=== PATIENT | female | born 1985 | race Two or more races ===

== ENCOUNTER → 2019-04-15 09:54 | Outpatient (CLI) | payer SELFPAY ==
[2014-09-17 12:25] VITALS: BMI 35.8
[~2019-04-15 09:54] MED LIST: HYDROCODON-ACE1 EA10 PO; HYDROCODON-ACE1 EAC7 PO; IBUPROFEN600 MG PO; MOTRIN600 MG PO; PRENAVITE1 TAB PO
== END | disposition home or self-care (01) ==
LOC: D.LDO 09:54
PROVIDERS: ATTEND Obstetrics & Gynecology
DX: O26.893 Other specified pregnancy related conditions, third trimester (principal); Z3A.31 31 weeks gestation of pregnancy

== ENCOUNTER → 2019-05-13 12:11 | Outpatient (CLI) | payer MEDICAID ==
[2014-09-17 12:25] VITALS: BMI 35.8
== END | disposition home or self-care (01) ==
LOC: D.LDO 12:11
PROVIDERS: ATTEND Obstetrics & Gynecology
DX: O36.8130 Decreased fetal movements, third trimester, not applicable or unspecified (principal); Z3A.35 35 weeks gestation of pregnancy

== ENCOUNTER → 2019-05-17 13:52 | Outpatient (CLI) | payer MEDICAID ==
[2014-09-17 12:25] VITALS: BMI 35.8
== END | disposition home or self-care (01) ==
LOC: D.LDO 13:52
PROVIDERS: ATTEND Obstetrics & Gynecology
DX: O26.899 Other specified pregnancy related conditions, unspecified trimester (principal); Z3A.00 Weeks of gestation of pregnancy not specified

== ENCOUNTER → 2019-05-18 09:07 | Outpatient (CLI) | payer MEDICAID ==
[2014-09-17 12:25] VITALS: BMI 35.8
== END | disposition home or self-care (01) ==
LOC: D.LDO 09:07
PROVIDERS: ATTEND Obstetrics & Gynecology
DX: O35.9XX0 Maternal care for (suspected) fetal abnormality and damage, unspecified, not applicable or unspecified (principal)

== ENCOUNTER → 2019-05-21 19:28 | Outpatient (CLI) | payer MEDICAID ==
[2014-09-17 12:25] VITALS: BMI 35.8
== END | disposition home or self-care (01) ==
LOC: D.LDO 19:28
PROVIDERS: ATTEND Student in an Organized Health Care Education/Training Program
DX: O62.4 Hypertonic, incoordinate, and prolonged uterine contractions (principal); Z3A.36 36 weeks gestation of pregnancy

== ENCOUNTER 2019-05-25 03:03 | Inpatient (IN) | payer MEDICAID ==
[~2019-05-25] VITALS: Ht 152.4 cm; Wt 84.8 kg
[~2019-05-25 03:03] MED LIST changes: -HYDROCODON-ACE1 EA10 PO; -MOTRIN600 MG PO
[2019-05-25 04:17] VITALS: BP 139/85; Ht 152.4 cm; Wt 84.8 kg
[2019-05-25 04:20] LABS: HEMATOCRIT 41.2 % (36.0-48.0); HEMOGLOBIN 13.4 g/dL (12-16); MCHC 32.5 g/dL (31.0-37.0); MCV 86.2 fL (80.0-100.0); MEAN PLATELET VOLUME 11.4 fL (7.4-10.4); RBC 4.78 10x6/uL (4.00-5.40); RDW 13.6 % (11.5-14.5); WBC 6.9 10x3/uL (4.8-10.8)
--- NOTE | 2019-05-25 08:55 | NUR ---
IN [place] OFF BEARER ROLE TODAY FOR [employer] RN STUDENT PROGRAM. PATIENT PREFERRED NO STUDENTS DURING LABOR AND DELIVERY. ASKED PT AND IF OK FOR STUDENT TO WORK WITH NURSERY RN IN TAKING CARE OF INFANT- STUDENT WILL NOT GIVE MEDS BUT WILL COMPLETE CHART REVIEW AND ASSESSMENT. PATIENT AND FOB GAVE VERBAL CONSENT THAT STUDENT CAN WORK WITH NURSERY RN.
[2019-05-25 09:11] LABS: APPEARANCE CLEAR (CLEAR); BACTERIA FEW /hpf (NEGATIVE); BILIRUBIN NEGATIVE (NEGATIVE); COLOR YELLOW (YELLOW); EPITHELIAL CELLS 0-5 /hpf (0-5); GLUCOSE NEGATIVE (NEGATIVE); KETONE NEGATIVE (NEGATIVE); NITRITE NEGATIVE (NEGATIVE); PROTEIN 1+ mg/dL (NEGATIVE); RED CELLS - URINE 0-5 /hpf (0-5); UROBILINOGEN NORMAL (NORMAL); WHITE CELLS - URINE OCC /hpf (NEGATIVE); YEAST <1+ /hpf (NONE SEEN)
[2019-05-25 12:35] VITALS: BP 148/92
--- NOTE | 2019-05-25 12:40 | NUR ---
TO ROOM 1221 VIA W/C FROM L&D. INTO BED. REPORT FROM Sebastian RODAS RN. FUNDUS 1/U. AT BEDSIDE. VS DONE.
--- NOTE | 2019-05-25 12:45 | NUR ---
STATES THAT NEEDS TO VOID. UP TO BATHROOM- UNABLE TO VOID. SMALL LOCHIA NOTED- SMALL CLOT X1. RETURNS TO BED. EXPLAINED ABOUT IN AND OUT CATH- PT AGREES. IN AND OUT CATH DONE USING TERRAZZO TILE SETTER WITH 700CC URINE RETURN. FUNDUS UU. VS REPEATED. REG DIET SERVED.
[2019-05-25 13:06] VITALS: BP 147/89
[2019-05-25 14:00] VITALS: BP 127/72
--- NOTE | 2019-05-25 14:00 | NUR ---
VS DONE. RESTING IN BED. DENIES NEEDS. FUNDUS UU/FIRM. SCANT LOCHIA NOTED ON PAD. FSBS DONE- 119. INFORMED DR KANG OF THIS- STATES DO NOT NEED TO REPEAT BS.
--- NOTE | 2019-05-25 15:07 | NUR ---
ENTERED ROOM WITH PAIN MEDICATION FOR CO CRAMPING AND RATES PAIN A 5 ON SCALE OF 0-10. STATES FEELS LIKE CAN VOID.
--- NOTE | 2019-05-25 15:21 | NUR ---
VOIDED 300CC INTO CONTAINER. INSTRUCTED ON CORDELIA CARE USING BETADINE AND WARM WATER, DERMAPLAST AND TUCKS PADS. PT STATES UNDERSTANDING.
--- NOTE | 2019-05-25 16:10 | NUR ---
RESTING IN BED. STATES THAT PAIN IS BETTER AFTER PAIN MEDICATION.
[2019-05-25 16:12] VITALS: BP 132/80
--- NOTE | 2019-05-25 18:36 | NUR ---
UP AND ABOUT IN ROOM- TENDING TO INFANT. CO CRAMPING AND RATES PAIN A 4 ON SCALE OF 0-10.
[2019-05-25 19:31] VITALS: BP 120/75
--- NOTE | 2019-05-25 19:45 | NUR ---
PT IS AWAKE AND ALERT. SHE IS HAVING PAIN AT THIS TIME. SHE WAS GIVEN NARCO 5 MG PO. HER FUNDUS IS FIRM. BLEEDING IS SMALL AMT. HEART SOUNDS WNL, LUNGS ARE CLEAR, BOWEL SOUNDS HEARD IN ALL 4 QUAD. SHE IS UP AD NOLBERTO IN HER ROOM. SHE DOESN'T SPEAK MUCH THAI AND HER IS WITH HER ALWAYS TO TRANSLATE. PT IS VOIDING WELL WITHOUT PROBLEMS.
--- NOTE | 2019-05-25 21:00 | NUR ---
PT IS RESTING WELL. NO NEW C/O AT THIS TIME. PT IS UP AD NOLBERTO IN ROOM. AT BEDSIDE.
--- NOTE | 2019-05-25 22:05 | NUR ---
PT DOING WELL. SHE IS UP IN THE BATHROOM. MINIMUN BLEEDING NOTED ON PAD. SHE STATES HER PAIN IS A 4 BUT REQUEST NO MEDS. AT BEDSIDE. NO NEED OR WANTS AT THIS TIME.
--- NOTE | 2019-05-26 00:40 | NUR ---
PT IS AWAKE TALKING WITH . SHE HAS NO C/O AT THIS TIME. SHE IS UP AD NOLBERTO IN HER ROOM.
--- NOTE | 2019-05-26 02:15 | NUR ---
PT IS RESTING QUIETLY WITH HER EYES CLOSED. NO C/O AT THIS TIME. IS ALSO SLEEPING AT BEDSIDE. NO NEEDS OR WANT AT THIS TIME.
--- NOTE | 2019-05-26 05:00 | NUR ---
ROUNDS MADE. DAD CURRENTLY ATTEMPTING TO FEED . INFORMED NOT DUE TO EAT UNTIL 529. WILL WAIT UNTIL THEN.
[2019-05-26 05:09] LABS: BASOPHILS 0.2 % (0-2); EOSINOPHILS 2.1 % (0-7); HEMATOCRIT 39.8 % (36.0-48.0); IMMATURE GRANULOCYTES 0.5 % (0-5); LYMPHOCYTES 29.5 % (15-50); MCH 28.4 pg (26.0-34.0); MCHC 32.7 g/dL (31.0-37.0); MCV 86.9 fL (80.0-100.0); MEAN PLATELET VOLUME 10.8 fL (7.4-10.4); MONOCYTES 5.5 % (2-11); NEUTROPHILS 62.2 % (40-80); PLATELET COUNT 204 10x3/uL (130-400); RBC 4.58 10x6/uL (4.00-5.40); RDW 13.9 % (11.5-14.5); WBC 8.5 10x3/uL (4.8-10.8)
--- NOTE | 2019-05-26 05:59 | NUR ---
PT C/O OF PAIN RATING OF 6. MEDICATED WITH NARCO 5 MG PO. IN ROOM HOLDING THE BABY.
[2019-05-26 07:13] LABS: RAPID PLASMA REAGIN Non Reactive (Non Reactive)
[2019-05-26 08:07] VITALS: BP 128/74
--- NOTE | 2019-05-26 08:07 | NUR ---
PT RESTING QUIETLY IN BED WITH BABY AND SPOUSE AT BEDSIDE. RESP EVEN AND UNLABORED. PT REPORTS MINIMAL PAIN 4/10 AT THIS TIME. SALINE LOC TO RIGHT HAND. SITE WITHOUT REDNESS OR EDEMA. FUNDUS FIRM 2 BELOW UMBILICUS. SCANT BLEEDING NOTED. BONDING WELL WITH BABY. DENIES FURTHER NEEDS AT THIS TIME. CL WITHIN REACH. ENCOURAGED TO CALL WITH NEEDS. CONTINUE POC
[2019-05-26] MEDS ORDERED: HYDROCODON-ACE1 EA10 PO (11:21)
[2019-05-26] MEDS ORDERED: MOTRIN600 MG PO (11:22)
--- NOTE | 2019-05-26 13:00 | NUR ---
IV D/C'D. CATHETER INTACT. BANDAGE PLACED AT INSERTION SITE.
--- NOTE | 2019-05-26 14:00 | NUR ---
DISHCARGE TEACHING COMPLETED WITH ASSISTANCE FROM FAMILY MEMBER ACTING SIMULATION SPECIALIST. PATIENT STATES UNDERSTANDING. FOLLOW-UP APPOINTMENT AND PRESCRIPOTIONS GIVEN. PATIENT DOES HAVE QUESTIONS OR CONCERNS.
--- NOTE | 2019-05-26 15:30 | NUR ---
DISCHARGED HOME IN STABLE CONDITION. TO PRIVATE VEHICLE VIA WHEELCHAIR BY HOSPITAL STAFF.
== END 2019-05-26 15:40 | disposition home or self-care (01) | DRG 805 ==
LOC: D.LDO 03:03 → D.LD 03:32 → D.WS 12:35
PROVIDERS: Obstetrics & Gynecology; ADMIT Obstetrics & Gynecology; ATTEND Obstetrics & Gynecology
PROC: 10E0XZZ Delivery of Products of Conception, External Approach (ICD-10-PCS; principal; 2019-05-25)
DX: O24.429 Gestational diabetes mellitus in childbirth, unspecified control (principal); O60.14X0 Preterm labor third trimester with preterm delivery third trimester, not applicable or unspecified; Z37.0 Single live birth; O14.04 Mild to moderate pre-eclampsia, complicating childbirth; Z3A.36 36 weeks gestation of pregnancy